=== PATIENT | male | born 1980 | race American Indian/Alaskan Native ===

== ENCOUNTER 2017-05-24 18:17 | Emergency (ER) | payer SELFPAY ==
[2017-05-24 18:18] VITALS: BMI 25.0
[2017-05-24] MEDS ORDERED: cefTRIAXone (Rocephin) 250 mg Inj IM STA (18:51)
--- NOTE | 2017-05-24 19:35 | C.PDOC ---
History Of Present Illness 37 year old male presents to the ER for STD testing. He reports his girlfriend is being treated for chlamydia. Patient denies having any physical complaints. Time Seen by Provider: 05/24/17 18:50 Chief Complaint (Nursing): Medical Clearance History Per: Patient History/Exam Limitations: no limitations Past Medical History Reviewed: Historical Data, Nursing Documentation, Vital Signs Vital Signs: Last Vital Signs Temp 98 F 05/24/17 20:23 Pulse 80 05/24/17 20:23 Resp 20 05/24/17 20:23 BP 134/82 05/24/17 20:23 Pulse Ox 98 05/24/17 20:23 - Medical History PMH: Asthma Denies: Depression Surgical History: No Surg Hx - [facility] Procedures INJECT/INFUSE ELECTROLYT (02/17/13) INJECT/INFUSE NEC (02/17/13) Family History: States: No Known Family Hx - Social History Hx Tobacco Use: Yes Hx Alcohol Use: Yes Hx Substance Use: No Review Of Systems Except As Marked, All Systems Reviewed And Found Negative. Constitutional: Negative for: Fever, Chills Genitourinary: Negative for: Penile Discharge Physical Exam - Physical Exam Appears: Non-toxic, No Acute Distress Skin: Normal Color, Warm Head: Atraumatic, Normacephalic Eye(s): bilateral: Normal Inspection Nose: Normal Oral Mucosa: Moist Neck: Supple Chest: Symmetrical Cardiovascular: Rhythm Regular Respiratory: Normal Breath Sounds, No Accessory Muscle Use, No Rales, No Rhonchi , No Wheezing Extremity: Normal ROM, No Deformity, No Swelling Neurological/Psych: Oriented x3, Normal Speech, Normal Motor, Normal Sensation ED Course And Treatment O2 Sat by Pulse Oximetry: 99 (RA) Pulse Ox Interpretation: Normal Medical Decision Making Medical Decision Making: Patient treated for STD with Rocephin and Zithromax. Cultures obtained and sent to lab. 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 - Scribe Statement The provider has reviewed the documentation as recorded by the Scribe Pritesh Larson Provider Attestation All medical record entries made by the Josribfidencio were at my direction and personally dictated by me. I have reviewed the chart and agree that the record accurately reflects my personal performance of the history, physical exam, medical decision making, and the department course for this patient. I have also personally directed, reviewed, and agree with the discharge instructions and disposition.
[2017-05-24 20:24] VITALS: BP 134/82; PULSE 80; RESP 20; TEMP 98
[2017-05-24 21:12] VITALS: O2SAT 99
== END 2017-05-24 20:20 | disposition home or self-care (01) ==
LOC: C.ER 18:17
DX: N34.2 Other urethritis (principal)
CPT/HCPCS: 96372; 99282; J0696